=== PATIENT | male | born 1950 | race Caucasian/White ===

== ENCOUNTER 2019-01-13 10:25 | Outpatient (CLI) | payer MEDICARE, BC ==
[~2019-01-13] VITALS: Ht 177.8 cm; Wt 87.1 kg
[~2019-01-13 10:25] MED LIST: BENA20TA2 PO; CITA20TA28 PO; HYDR25TA4 PO
[2019-01-13 10:56] LABS: TOTAL HEMOGLOBIN 16.8 G/dl (14.0-18.0)
[2019-01-13] MEDS ORDERED: albuterol 2.5 MG/3 ML nebule NEB PRN (11:05)
== END 2019-01-13 23:59 | disposition home or self-care (01) ==
LOC: RT 10:25
PROVIDERS: ATTEND Internal Medicine Pulmonary Disease
DX: J44.9 Chronic obstructive pulmonary disease, unspecified (principal); I10 Essential (primary) hypertension; Z87.891 Personal history of nicotine dependence
CPT/HCPCS: 85018; 94010; 94727; 94729

== ENCOUNTER 2019-01-20 05:21 | Inpatient (IN) | payer MEDICARE, BC | END 2019-01-24 14:30 | disposition home or self-care (01) | LOC: MED 3N 01-21 17:30 → PAS IN 05:21 → CICU 2S 10:04 | PROC: 0BJ08ZZ Inspection of Tracheobronchial Tree, Via Natural or Artificial Opening Endoscopic (ICD-10-PCS; principal; 2019-01-20 07:25) | PROC: 0BTJ4ZZ Resection of Left Lower Lung Lobe, Percutaneous Endoscopic Approach (ICD-10-PCS; 2019-01-20 07:25) | PROC: 07B74ZX Excision of Thorax Lymphatic, Percutaneous Endoscopic Approach, Diagnostic (ICD-10-PCS; 2019-01-20 07:25) | DX: R91.1 Solitary pulmonary nodule (principal); J44.9 Chronic obstructive pulmonary disease, unspecified; I10 Essential (primary) hypertension ==

== ENCOUNTER 2019-02-04 11:40 | Outpatient (CLI) | payer MEDICARE, BC ==
[~2019-02-04 11:40] MED LIST changes: +ALBU8.5H8 INH; +ATOR40TA PO; +BECL7.3A7 INH; +CHOL2000 PO; -CITA20TA28 PO; +COL100C PO; +CYAN100097 PO; +DULO60CA64 PO; +HYDR-3972 PO; +POTA20TA19 PO
== END 2019-02-04 23:59 | disposition home or self-care (01) ==
LOC: LAB 11:40 → RAD 23:59
PROVIDERS: ATTEND Thoracic Surgery (Cardiothoracic Vascular Surgery)
DX: R91.1 Solitary pulmonary nodule (principal); I10 Essential (primary) hypertension; J44.9 Chronic obstructive pulmonary disease, unspecified; Z88.1 Allergy status to other antibiotic agents; Z87.891 Personal history of nicotine dependence; Z79.899 Other long term (current) drug therapy; Z98.890 Other specified postprocedural states
CPT/HCPCS: 71046